=== PATIENT | male | born 1960 | race Caucasian/White ===

== ENCOUNTER → 2017-02-21 | Outpatient (CLI) | payer OTHER ==
--- NOTE | 2017-02-21 13:11 | DIAGNOSTIC IMAGING REPORT ---
CERVICAL SPINE 5 VIEWS HISTORY: Pain M25.50 Arthralgia of multiple [id number] COMPARISON: None. FINDINGS: The cervical spine is visualized from C1 through the superior endplate of T1. There is no fracture. No subluxation. Findings consistent with fusion of the C6-C7 vertebral bodies. Moderate degenerative changes of posterior elements. Moderate degenerative disc change from C3 through C5. Prevertebral soft tissues and the atlantodens interval are intact. IMPRESSION: Degenerative and postoperative change. No acute process. Electronically signed by: Erik Bentley M.D. 02/21/2017 1:10 PM Dictated Date/Time: 02/21/2017 1:09 PM
--- NOTE | 2017-02-21 13:12 | DIAGNOSTIC IMAGING REPORT ---
RIGHT HIP UNILATERAL 2 VIEWS CLINICAL HISTORY: M25.50 Arthralgia of multiple joints both Right pain COMPARISON: None. DISCUSSION: The bones and joint spaces appear intact. There is no evidence of fracture, dislocation or bony disease. There is no evidence for soft tissue swelling. IMPRESSION: Negative study. Electronically signed by: Erik Bentley M.D. 02/21/2017 1:11 PM Dictated Date/Time: 02/21/2017 1:11 PM
--- NOTE | 2017-02-21 13:12 | DIAGNOSTIC IMAGING REPORT ---
RIGHT SHOULDER MIN 2 VIEWS ROUTINE CLINICAL HISTORY: M25.50 Arthralgia of multiple joints both RAD Right pain COMPARISON: None. DISCUSSION: Moderate degenerative changes of glenohumeral as well as acromioclavicular joints. Several degenerative subchondral cystic components lateral aspect humeral head. No abnormal soft tissue calcifications. There is no evidence for soft tissue swelling. IMPRESSION: Moderate degenerative change. Electronically signed by: Erik Bentley M.D. 02/21/2017 1:10 PM Dictated Date/Time: 02/21/2017 1:10 PM
--- NOTE | 2017-02-21 13:13 | DIAGNOSTIC IMAGING REPORT ---
LEFT SHOULDER MIN 2 VIEWS ROUTINE CLINICAL HISTORY: M25.50 Arthralgia of multiple [id number] pain COMPARISON: None. DISCUSSION: Moderate degenerative change of the glenohumeral as well as acromioclavicular joints. No evidence for fracture or dislocation. No abnormal soft tissue calcifications. There is no evidence for soft tissue swelling. IMPRESSION: Moderate degenerative change. No acute process. Electronically signed by: Erik Bentley M.D. 02/21/2017 1:12 PM Dictated Date/Time: 02/21/2017 1:12 PM
--- NOTE | 2017-02-21 13:14 | DIAGNOSTIC IMAGING REPORT ---
LEFT HIP UNILATERAL 2 VIEWS CLINICAL HISTORY: M25.50 Arthralgia of multiple [id number] pain COMPARISON: None. DISCUSSION: The bones and joint spaces appear intact. There is no evidence of fracture, dislocation or bony disease. There is no evidence for soft tissue swelling. IMPRESSION: Negative study. Electronically signed by: Erik Bentley M.D. 02/21/2017 1:13 PM Dictated Date/Time: 02/21/2017 1:12 PM
[2017-02-21 17:15] LABS: ALT/SGPT 39 U/L (12-78); AST/SGOT 24 U/L (15-37); BLOOD UREA NITROGEN 18 mg/dl (7-18); BUN/CREATININE RATIO 20.1 (10-20); CALCIUM 9.4 mg/dl (8.5-10.1); CARBON DIOXIDE 30 mmol/L (21-32); CHLORIDE 105 mmol/L (98-107); CREATININE 0.88 mg/dl (0.60-1.40); GLUCOSE 88 mg/dl (70-99); SODIUM 140 mmol/L (136-145)
[2017-02-21 17:16] LABS: BASO % 0.4 %; BASO ABS # 0.03 K/uL (0-0.2); COMPLETE YES; EOS % 1.4 %; HEMATOCRIT 42.3 % (42-52); IG% 0.1 %; LYMPH % 28.3 %; LYMPH ABS # 1.97 K/uL (1.2-3.4); MEAN CORPUSCULAR HEMOGLOBIN 30.3 pg (25-34); MEAN CORPUSCULAR HGB CONC 35.2 g/dl (32-36); MEAN PLATELET VOLUME 10.2 fL (7.4-10.4); MONO % 6.6 %; NEUT % 63.2 %; PLATELET COUNT 358 K/uL (130-400); RED BLOOD COUNT 4.92 M/uL (4.7-6.1); WHITE BLOOD COUNT 6.97 K/uL (4.8-10.8)
[2017-02-21 17:17] LABS: ALB/GLOB RATIO 1.2 (0.9-2); ALKALINE PHOSPHATASE 86 U/L (45-117); RHEUMATOID FACTOR < 10.0 U/mL (0-15)
== END | disposition home or self-care (01) ==
LOC: C.RADBC 11:33
PROVIDERS: ATTEND Psychiatry & Neurology Neurology
DX: M25.50 Pain in unspecified joint (principal)